=== PATIENT | female | born 1985 | race Caucasian/White ===

== ENCOUNTER 2016-11-28 23:24 | Emergency (ER) | payer OTHER ==
[~2016-11-28 23:24] MED LIST: ALPRAZOLAM0.25 MG EN; BACLOFEN10 MG PO; BUPROPION HCL150 M3 PO; CONCERTA36 MG PO; FOLIC ACID1 MG PO; MELOXICAM15 MG PO; MULTIVITAMIN1 TAB PO; PERCOCET1 TA1 PO; VITAMIN B-1 PO
--- NOTE | 2016-11-29 02:13 | ED NURSING NOTES ---
Clinical Report - Nurses [facility] [address] [place] [address] 11/28/2016 23:24 Patient: WILL MCCLENDON TRIAGE Triage time 23:29. Acuity: LEVEL 3. Chief Complaint: ABDOMINAL PAIN and NAUSEA and (Onset 5 hours ago, getting worse. Location central upper abdomen radiating across from RUQ to LUQ. Pain described as "wrenching, stabbing pain, burning." Alleviating factors: none identified, Aggravating factors: none identified. Has gallbladder and appendix. No hx of GI, liver issues.). Alert. SEPSIS SCREEN: Sepsis Screen: negative. Negative (no infection suspected/documented). --23:33 Les Emmanuel R.N. 23:27 11/28/16. BP: 146/91 (regular adult cuff) taken on the left arm, via an automated monitor, while lying. HR: 95 (normal rate). RR: 18 (regular, unlabored and normal). O2 saturation: 100% on room air. Temp: 97.8 F (oral). Pain level now: 05/10. --23:33 Les Emmanuel R.N. Weight: 88.4 kg stated. Height/Length: 61 inches Per Patient. BMI: 36.8. --23:30 Les Emmanuel R.N. Medications [place] Oral. --00:04 Les Emmanuel R.N. Effexor XR Oral. --00:04 Les Emmanuel R.N. [place] Oral. --00:04 Les Emmanuel R.N. Ritalin Oral. --00:04 Les Emmanuel R.N. Allergies No Known Drug Allergy. --00:04 Les Emmanuel R.N. History Arrived by private vehicle. Historian: patient. Accompanied by daughter. The patient has had vomiting. The vomiting has occurred twice and has been bilious and severe, colicky, sharp, burning abdominal pain. The pain is described as located in the upper abdomen, RUQ and LUQ. No fever, constipation, diarrhea, difficulty with urination or hematuria. Last oral intake by patient was (6:30 pm). Treatment COAT IRONER HAND: Took ibuprofen. Symptoms did not improve after treatment. (2 hours ago 600 mg). PAST MEDICAL HX: Uses an intrauterine device. SOCIAL HX: Current every day light tobacco smoker (cigarette)- less than 1/2 a pack per day. Regular alcohol use; consumes six beers a week. History of occasional drug use: marijuana. Recently used drugs days ago. The patient has not traveled outside the [place] The patient was not exposed to MRSA. No infectious disease exposure. ABUSE ASSESSMENT: Abuse assessment: The patient was asked "Do you feel safe in your home?" and "Has anyone hurt you or threatened to hurt you?". No report of abuse. SELF HARM ASSESSMENT: A self harm assessment was performed. The patient answered "no" to the question "Do you have thoughts of harming or killing yourself?" and "Have you recently had thoughts about harming or killing others?". FALL RISK ASSESSMENT: Fall risk assessment completed. No fall risk identified. NUTRITIONAL RISK ASSESSMENT: The nutritional risk assessment revealed no deficiencies. FUNCTIONAL ASSESSMENT: Functional assessment: no impairments noted. LEARNING NEEDS ASSESSMENT: The learning needs assessment revealed no barriers. SKIN INTEGRITY ASSESSMENT: Skin integrity risk assessment completed. No skin integrity risk identified. --23:33 Les Emmanuel R.N. Assessment GENERAL / NEURO / PSYCH: Alert. Oriented X 4. Appears in pain. [place] Coma Scale: 15- eyes open spontaneously (4); best verbal response- oriented x 4 (5); best motor response- obeys commands (6). Patient appears calm and cooperative. RESPIRATORY: Respirations not labored. SKIN: Skin is warm and dry. --23:33 Les Emmanuel R.N. Interventions ID band on patient. To treatment room. --23:33 Les Emmanuel R.N. PHYSICAL ASSESSMENT Ambulatory to room. GENERAL / NEURO / PSYCH: Alert. Oriented X 4. Appears in pain. RESPIRATORY: No respiratory distress. Respirations not labored. Breath sounds within normal limits. CVS: Normal sinus rhythm noted. Pulses: right radial 2+ and left radial 2+. Capillary refill less than 2 seconds. GI / : Obesity. Abdomen soft. Abdominal tenderness in the right upper quadrant. Bowel sounds within normal limits. ( Positive Andrea's Sign. Negative [place] Point tenderness, Rovsing's sign.). SKIN: Skin is warm and dry. --00:02 Les Emmanuel R.N. NURSING PROGRESS NOTES The initial plan of care for this patient has been created This plan of care was discussed with the patient. Patient gowned. Reassurance given to the patient. Two patient identifiers checked. Call light placed in reach. Side rails up x 1. Bed placed in lowest position. Brakes of bed on. Patient ready for evaluation- ED physician notified. --23:33 Les Emmanuel R.N. 23:48 11/28/2016 Two (2) unsuccessful IV access attempts including the right forearm. --23:48 Les Emmanuel R.N. ( POCT Urine - Negative). --23:50 Jeni Granados, ER Tech1 23:50 11/28/2016 Site #1 started via IV in the left wrist with an 20g angiocath, with aseptic technique and good blood return; one attempt. Blood drawn: rainbow set. Labeled in the presence of the patient and sent to the lab. Saline lock flushed with 10 mL saline. --23:57 Marc Elise R.N. 23:58 11/28/2016 Started bag #1 1000 mL IV Fluids IV NS (Saline); at 1000 mL/hr over 1 hour(s) via site #1. Allergies verified and confirmed 5 rights. IV patency established. IV site checked: no pain, redness, or swelling. IV flushed thoroughly pre- and post-medication administration. Completed per protocol. --23:58 Les Emmanuel R.N. 23:58 11/28/2016 Zofran (Ondansetron HCl) IVP 4 mg given over 2 minute(s) via site #1. Allergies verified and confirmed 5 rights. IV patency established. IV site checked: no pain, redness, or swelling. IV flushed thoroughly pre- and post-medication administration. IVP given by RN. --23:58 Les Emmanuel R.N. 23:59 11/28/2016 Demerol (Meperidine HCl) IVP 25 mg given over 2 minute(s) via site #1. Allergies verified and confirmed 5 rights. IV patency established. IV site checked: no pain, redness, or swelling. IV flushed thoroughly pre- and post-medication administration. IVP given by RN. --23:59 Les Emmanuel R.N. 23:33. Patient ID band checked for patient name and birthdate: patient confirmed. Instructions provided to collect clean catch urine and patient verbalized understanding. Clean catch urine collected with return of yellow-colored clear urine; sample sent to lab for urinalysis. Specimen labeled in the presence of the patient. --00:02 Les Emmanuel R.N. Warming measures performed. Lights dimmed. --00:03 Les Emmanuel R.N. 00:47 11/29/2016 Zofran (Ondansetron HCl) IVP 4 mg given over 2 minute(s) via site #1. Allergies verified and confirmed 5 rights. IV patency established. IV site checked: no pain, redness, or swelling. IV flushed thoroughly pre- and post-medication administration. IVP given by RN. --00:48 Les Emmanuel R.N. 01:04 11/29/2016 GI COCKTAIL WHITE (Simethicone) PO Oral Suspension 30 mL given. Allergies verified and confirmed 5 rights. --01:04 Les Emmanuel R.N. 01:44 11/29/2016 GI COCKTAIL WHITE PO Response: no adverse reaction symptoms are the same. The patient feels the same. --01:44 Les Emmanuel R.N. 01:50 11/29/16. BP: 100/48 (regular adult cuff) taken on the right arm, via an automated monitor, while lying. HR: 87 (normal rate). RR: 16 (regular, unlabored and normal). O2 saturation: 96% on room air. --01:51 Les Emmanuel R.N. 01:51 11/29/2016 Demerol (Meperidine HCl) IVP 25 mg given over 2 minute(s) via site #1. Allergies verified and confirmed 5 rights. IV patency established. IV site checked: no pain, redness, or swelling. IV flushed thoroughly pre- and post-medication administration. IVP given by RN. --01:51 Les Emmanuel R.N. 01:51 11/29/2016 Zofran IVP Response: no adverse reaction symptoms have improved. --01:51 Les Emmanuel R.N. 01:51 11/29/2016 Zofran IVP Response: no adverse reaction symptoms have improved. --01:51 Les Emmanuel R.N. 01:51 11/29/2016 Demerol IVP Response: no adverse reaction symptoms have improved. --01:51 Les Emmanuel R.N. 01:52 11/29/2016 IV Fluids IV NS Discontinued: bag #1 completed upon discharge. Total amount infused: 1000 mL. --01:52 Les Emmanuel R.N. 02:26 11/29/2016 Demerol IVP Response: no adverse reaction pain is improving. Symptoms have improved the patient feels better. --02:26 Lse Emmanuel R.N. DISPOSITION / DISCHARGE 02:11/29/2016 Site #1 removed upon discharge. Catheter intact. Bandaid applied (Bleeding controlled.). --02: Les Emmanuel R.N. Departure time: 02:25. Condition at departure: stable. The goals identified in the patient's plan of care were met. No learning barriers present. Discharge instructions provided and reviewed with the patient. Reviewed medication(s) side effects, precautions, dosing and course information. Prescription(s) given to the patient (Will verbalizes importance of not driving and/or operating heavy machinery while taking narcotics. She verbalizes safe, proper use of prescribed pain med for optimal pain management at home.). Patient verbalized understanding. Written instructions provided in Macedonian. ( Will verbalizes understanding of all d/c instructions including need to f/u with PCP. She has no questions and voices no concerns at this time.). The patient was discharged by the physician. She was discharged home and accompanied by family. She left the Emergency Department ambulatory and via private vehicle. Family member driving (Daughter). TITUS COMA SCORE: [place] Coma Scale: 15- eyes open spontaneously (4); best verbal response- oriented x 4 (5); best motor response- obeys commands (6). --02:25 Les Emmanuel R.N. 02:23 11/29/16. BP: 99/55 (regular adult cuff) taken on the right arm, via an automated monitor, while lying. HR: 74 (normal rate). RR: 14 (regular, unlabored and normal). O2 saturation: 96% on room air. Temp: 98.5 F (oral). Pain level now: 0/10. --02:25 Les Emmanuel R.N. Locked/Released at 11/29/2016 2:26 by Les Emmanuel R.N.
--- NOTE | 2016-11-29 02:13 | ED CLINICAL REPORT ---
Clinical Report - Physicians/Mid Levels [facility] [address] [place] [address] 11/28/2016 23:24 Patient: WILL MCCLENDON Time Seen: 23:26; initial patient contact. Arrived- By private vehicle. Historian- patient. HISTORY OF PRESENT ILLNESS Chief Complaint: ABDOMINAL PAIN. This started today and is still present. At its maximum, severity described as moderate. When seen in the E.D., severity described as moderate. Modifying factors- worsened by food. Not relieved by anything. It is described as cramping and it is described as located in the right upper quadrant and radiating to the upper back. The patient has had nausea, loss of appetite and vomiting. No diarrhea. Similar symptoms previously: None. Recent medical care: Not recently seen/assessed. REVIEW OF SYSTEMS No constipation, black stools, pain with urination, bloody stools or fever. No chills. Last bowel movement: today. All systems otherwise negative, except as recorded above. PAST HISTORY Depression. Anxiety Reaction. Drug Poisoning. Mental Illness. TMJ Syndrome. Abdominal Pain. Fall. Sprain. Tetanus Status. Vomiting. Gastritis. Immunizations. Dental Abscess. Lifestyle / Substance Problems. Abscess. Cellulitis. Migraine Headache. Allergic Reaction SURGERIES: . Dilatation & Curettage. SOCIAL HISTORY Current every day smoker. Occasional alcohol use. History of drug use: marijuana. ADDITIONAL NOTES The nursing notes have been reviewed. PHYSICAL EXAM Vital Signs: 11/28/2016 23:27 BP: 146/91. HR: 95. RR: 18. O2 saturation: 100%. Temp: 97.8 F. Pain level now: 05/10. Have been reviewed. Hypertensive. Heart rate normal. Respiratory rate normal. Temperature normal. Oxygen saturation normal. Appearance: Alert. Oriented X3. Appears to be in pain. Eyes: Eyes normal inspection. No scleral icterus. ENT: Dry mucous membranes present. Neck: Normal inspection. CVS: Normal heart rate and rhythm. Heart sounds normal. Respiratory: No respiratory distress. Breath sounds normal. Abdomen: Soft. Mild tenderness in the right upper quadrant. Positive Andrea's sign. No guarding or rebound tenderness. Bowel sounds normal. No organomegaly. No mass. Back: Normal inspection. No CVA tenderness. Skin: Skin warm and dry. Normal skin color. No rash. Extremities: No lower extremity edema. Neuro: Oriented X 3. LABS, X-RAYS, AND EKG Laboratory Tests: UA-Culture if indicated: (MITESH: 11/28/2016 23:30) ( [facility] 11/28/2016 23:51) Final results Test Result Flag Units (Reference) URINE COLOR YELLOW URINE APPEARANCE CLEAR URINE GLUCOSE NEGATIVE (NEGATIVE) URINE BILIRUBIN NEGATIVE (NEGATIVE) URINE KETONE NEGATIVE (NEGATIVE) URINE SPECIFIC GRAVITY 1.015 (1.010-1.030) URINE PH 6.5 (5.0-8.0) URINE PROTEIN NEGATIVE (NEGATIVE) URINE UROBILINOGEN 0.2 EU/dL (0.2-1.0) URINE NITRITE NEGATIVE (NEGATIVE) URINE BLOOD TRACE-LYSED (NEGATIVE) URINE LEUK ESTERASE NEGATIVE (NEGATIVE) URINE RBC 0-1 rbc/hpf (0-1) URINE WBC 0-1 wbc/hpf (0-1) URINE EPITHELIAL CELLS 0-1 EPI/hpf (0-5) URINE BACTERIA NONE SEEN (NONE SEEN) URINE COMMENT CULT NOT INDICATED URINE CULTURES ARE SET-UP BASED ON THE FOLLOWING CRITERIA:POSITIVE NITRITEPOSITIVE LEUKOCYTE ESTERASEGREATER THAN 10 WHITE BLOOD CELLSMODERATE (2+) OR GREATER BACTERIA CBC w Diff: (MITESH: 11/28/2016 23:40) ( [facility] 11/29/2016 00:08) Final results Test Result Flag Units (Reference) WHITE BLOOD COUNT 12.2 H K/uL (4.5-11.5) RED BLOOD COUNT 4.10 M/uL (4.00-5.20) HEMOGLOBIN 12.6 gm/dL (12.0-16.0) HEMATOCRIT 38.2 % (36.0-46.0) MEAN CELL VOLUME 93 fL (80-100) MEAN CORPUSCULAR HGB 31 pg (26-34) MEAN CORPUSCULAR HGB CONC 33 g/dL (31-37) RED CELL DISTRIBUTION WIDTH 13.1 % (11.6-14.8) PLATELET COUNT 271 K/uL (150-400) NEUTROPHIL % 73.9 % (50-75) LYMPH % 14.0 L % (25-40) MONO % 9.1 % (3-14) EOSINOPHIL % 2.6 % (0-4) BASOPHIL % 0.4 % (0-2) CMP: (MITESH: 11/28/2016 23:40) ( MsgRcvd 11/29/2016 00:17) Final results Test Result Flag Units (Reference) GLUCOSE 112 H mg/dL (70-110) BUN 11 mg/dL (7-18) CREATININE 0.8 mg/dL (0.6-1.3) Estimated GFR >60 mL/min Estimated GFR- >60 mL/min Note: Persistent reduction over 3 months in eGFR<60 mL/min/1.73 m2 defines CKD. Patients with eGFR values>=60 mL/min/1.73 m2 may also have CKD if evidence ofpersistent proteinuria. Additional information may be foundat www.kidney.org. SODIUM 142 mmol/L (136-145) POTASSIUM 3.7 mmol/L (3.5-5.1) CHLORIDE 105 mmol/L (98-107) CARBON DIOXIDE 26 mmol/L (21-32) CALCIUM 8.4 L mg/dL (8.5-10.1) TOTAL PROTEIN 7.1 g/dL (6.4-8.2) ALBUMIN 3.8 g/dL (3.3-5.0) BILIRUBIN, TOTAL 0.4 mg/dL (0.0-1.0) ALKALINE PHOSPHATASE 98 U/L (46-116) AST (SGOT) 26 U/L (15-37) ALT (SGPT) 30 U/L (12-78) LIPASE 93 U/L (73-393) AMYLASE 44 U/L (25-115) . PROGRESS AND PROCEDURES Disposition: Discharged home in good and improved condition. Condition: good. CLINICAL IMPRESSION Biliary colic. INSTRUCTIONS Drink plenty of fluids. Avoid alcohol. Avoid fried/greasy and spicy foods. Your Current Medications: CONTINUE TAKING THE FOLLOWING MEDICATIONS: Effexor XR Oral. [place] Oral. [place] Oral. Ritalin Oral. Prescription Medications: Hydrocodone/APAP 5mg / 325mg: take 1 orally every 6 hours as needed for pain. Dispense fifteen (15). No refill. Follow-up: Screening today revealed the patient's blood pressure to be in the normal range. Follow-up with: Mc Friend MD, General Surgeon, , [facility], [address] [place] [address] Follow up in about two days. Call for an appointment. (Electronically signed by Neto Wilburn Dr. 11/29/2016 2:46)
--- NOTE | 2016-11-29 02:13 | ED ORDER SUMMARY ---
..... Patient: WILL MCCLENDON OrderSheet [facility] VisitID: [id number] [place] [address] 31y, F Registration Date/Time: 11/28/2016 ORDER SHEET Weight: 88.4 kg (stated) Allergies: No Known Drug Allergy GENERAL ORDERS: UA-Culture if indicated Urgent (23:39 11/28/2016 NHouse ER Tech1 verbal order read back to Zully Lindsey) (Ack 23:40 CHagerty ER Chisel Trimmer) (23:48 JDeElena R.N.) CBC w Diff Urgent (23:42 11/28/2016 Zully Lindsey) (Ack 23:46 Becka ER Chisel Trimmer) (Collected 23:48 JDeElena R.N.) (23:58 JQuivey R.N.) CMP Urgent (23:42 11/28/2016 Zully Lindsey) (Ack 23:46 Becka ER Chisel Trimmer) (23:58 JQuivey R.N.) Amylase Urgent (23:42 11/28/2016 Zully Lindsey) (Ack 23:46 Becka ER Chisel Trimmer) (23:58 JQuivey R.N.) Lipase Urgent (23:42 11/28/2016 Zully Lindsey) (Ack 23:46 Becka ER Chisel Trimmer) (23:58 JQuivey R.N.) MEDICATION ORDERS: GI Cocktail WHITE PO 30 mL with Lidocaine Viscous Mouth/Throat 15 mL, Maalox Plus Oral 15 mL (NOW) (00:48 11/29/2016 JDeElena R.N. verbal order read back to Zully Lindsey) (Ack 0:50 JDeElena R.N.) (1:04 JDeElena R.N.) IV FLUIDS: IV NS : initial bolus none -, then 1000 mL/hr for X1 (NOW) (23:42 11/28/2016 Zully Lindsey) (Ack 23:48 JDeElena R.N.) (23:58 JDeElena R.N.) Zofran IV 4 mg (NOW) (23:42 11/28/2016 Zully Lindsey) (Ack 23:48 JDeElena R.N.) (23:58 JDeElena R.N.) Demerol IV 25 mg (HIGH ALERT MEDICATION, NOW) (23:42 11/28/2016 Zully Lindsey) (Ack 23:48 JDeElena R.N.) (23:59 JDeElena R.N.) Zofran IV 4 mg (NOW) (00:47 11/29/2016 Juan Rios.N. verbal order read back to Zully Lindsey) (0:48 JDeElena R.N.) Demerol IV 25 mg (HIGH ALERT MEDICATION, NOW) (01:45 11/29/2016 Zully Lindsey) (Ack 1:46 JDeElena R.N.) (1:51 JDeElena R.N.) ORDER SHEET NOTES: [Electronically signed by Les Emmanuel R.N. (02:26 11/29/2016)] [Electronically signed by Neto Wilburn Dr. (02:46 11/29/2016)] [Electronically locked/signed by Les Emmanuel R.N. (02:26 11/29/2016)]
--- NOTE | 2016-11-29 02:13 | ED ORDER SUMMARY ---
..... Patient: WILL MCCLENDON OrderSheet [facility] VisitID: [id number] [place] [address] 31y, F Registration Date/Time: 11/28/2016 ORDER SHEET Weight: 88.4 kg (stated) Allergies: No Known Drug Allergy GENERAL ORDERS: UA-Culture if indicated Urgent (23:39 11/28/2016 NHouse ER Tech1 verbal order read back to Zully Lindsey) (Ack 23:40 CHagerty ER Job Training Specialist) (23:48 JDeElena R.N.) CBC w Diff Urgent (23:42 11/28/2016 Zully Lindsey) (Ack 23:46 Becka ER Job Training Specialist) (Collected 23:48 JDeElena R.N.) (23:58 JQuivey R.N.) CMP Urgent (23:42 11/28/2016 Zully Lindsey) (Ack 23:46 Becka ER Job Training Specialist) (23:58 JQuivey R.N.) Amylase Urgent (23:42 11/28/2016 Zully Lindsey) (Ack 23:46 Becka ER Job Training Specialist) (23:58 JQuivey R.N.) Lipase Urgent (23:42 11/28/2016 Zully Lindsey) (Ack 23:46 Becka ER Job Training Specialist) (23:58 JQuivey R.N.) MEDICATION ORDERS: GI Cocktail WHITE PO 30 mL with Lidocaine Viscous Mouth/Throat 15 mL, Maalox Plus Oral 15 mL (NOW) (00:48 11/29/2016 JDeElena R.N. verbal order read back to Zully Lindsey) (Ack 0:50 JDeElena R.N.) (1:04 JDeElena R.N.) IV FLUIDS: IV NS : initial bolus none -, then 1000 mL/hr for X1 (NOW) (23:42 11/28/2016 Zully Lindsey) (Ack 23:48 JDeElena R.N.) (23:58 JDeElena R.N.) Zofran IV 4 mg (NOW) (23:42 11/28/2016 Zully Lindsey) (Ack 23:48 JDeElena R.N.) (23:58 JDeElena R.N.) Demerol IV 25 mg (HIGH ALERT MEDICATION, NOW) (23:42 11/28/2016 Zully Lindsey) (Ack 23:48 JDeElena R.N.) (23:59 JDeElena R.N.) Zofran IV 4 mg (NOW) (00:47 11/29/2016 Juan Rios.N. verbal order read back to Zully Lindsey) (0:48 JDeElena R.N.) Demerol IV 25 mg (HIGH ALERT MEDICATION, NOW) (01:45 11/29/2016 Zully Lindsey) (Ack 1:46 JDeElena R.N.) (1:51 JDeElena R.N.) ORDER SHEET NOTES: [Electronically signed by Les Emmanuel R.N. (02:26 11/29/2016)] [Electronically signed by Neto Wilburn Dr. (02:46 11/29/2016)] [Electronically locked/signed by Les Emmanuel R.N. (02:26 11/29/2016)]
--- NOTE | 2016-11-29 02:13 | ED CLINICAL REPORT ---
Clinical Report - Physicians/Mid Levels [facility] [address] [place] [address] 11/28/2016 23:24 Patient: WILL MCCLENDON Time Seen: 23:26; initial patient contact. Arrived- By private vehicle. Historian- patient. HISTORY OF PRESENT ILLNESS Chief Complaint: ABDOMINAL PAIN. This started today and is still present. At its maximum, severity described as moderate. When seen in the E.D., severity described as moderate. Modifying factors- worsened by food. Not relieved by anything. It is described as cramping and it is described as located in the right upper quadrant and radiating to the upper back. The patient has had nausea, loss of appetite and vomiting. No diarrhea. Similar symptoms previously: None. Recent medical care: Not recently seen/assessed. REVIEW OF SYSTEMS No constipation, black stools, pain with urination, bloody stools or fever. No chills. Last bowel movement: today. All systems otherwise negative, except as recorded above. PAST HISTORY Depression. Anxiety Reaction. Drug Poisoning. Mental Illness. TMJ Syndrome. Abdominal Pain. Fall. Sprain. Tetanus Status. Vomiting. Gastritis. Immunizations. Dental Abscess. Lifestyle / Substance Problems. Abscess. Cellulitis. Migraine Headache. Allergic Reaction SURGERIES: . Dilatation & Curettage. SOCIAL HISTORY Current every day smoker. Occasional alcohol use. History of drug use: marijuana. ADDITIONAL NOTES The nursing notes have been reviewed. PHYSICAL EXAM Vital Signs: 11/28/2016 23:27 BP: 146/91. HR: 95. RR: 18. O2 saturation: 100%. Temp: 97.8 F. Pain level now: 05/10. Have been reviewed. Hypertensive. Heart rate normal. Respiratory rate normal. Temperature normal. Oxygen saturation normal. Appearance: Alert. Oriented X3. Appears to be in pain. Eyes: Eyes normal inspection. No scleral icterus. ENT: Dry mucous membranes present. Neck: Normal inspection. CVS: Normal heart rate and rhythm. Heart sounds normal. Respiratory: No respiratory distress. Breath sounds normal. Abdomen: Soft. Mild tenderness in the right upper quadrant. Positive Andrea's sign. No guarding or rebound tenderness. Bowel sounds normal. No organomegaly. No mass. Back: Normal inspection. No CVA tenderness. Skin: Skin warm and dry. Normal skin color. No rash. Extremities: No lower extremity edema. Neuro: Oriented X 3. LABS, X-RAYS, AND EKG Laboratory Tests: UA-Culture if indicated: (MITESH: 11/28/2016 23:30) ( [facility] 11/28/2016 23:51) Final results Test Result Flag Units (Reference) URINE COLOR YELLOW URINE APPEARANCE CLEAR URINE GLUCOSE NEGATIVE (NEGATIVE) URINE BILIRUBIN NEGATIVE (NEGATIVE) URINE KETONE NEGATIVE (NEGATIVE) URINE SPECIFIC GRAVITY 1.015 (1.010-1.030) URINE PH 6.5 (5.0-8.0) URINE PROTEIN NEGATIVE (NEGATIVE) URINE UROBILINOGEN 0.2 EU/dL (0.2-1.0) URINE NITRITE NEGATIVE (NEGATIVE) URINE BLOOD TRACE-LYSED (NEGATIVE) URINE LEUK ESTERASE NEGATIVE (NEGATIVE) URINE RBC 0-1 rbc/hpf (0-1) URINE WBC 0-1 wbc/hpf (0-1) URINE EPITHELIAL CELLS 0-1 EPI/hpf (0-5) URINE BACTERIA NONE SEEN (NONE SEEN) URINE COMMENT CULT NOT INDICATED URINE CULTURES ARE SET-UP BASED ON THE FOLLOWING CRITERIA:POSITIVE NITRITEPOSITIVE LEUKOCYTE ESTERASEGREATER THAN 10 WHITE BLOOD CELLSMODERATE (2+) OR GREATER BACTERIA CBC w Diff: (MITESH: 11/28/2016 23:40) ( [facility] 11/29/2016 00:08) Final results Test Result Flag Units (Reference) WHITE BLOOD COUNT 12.2 H K/uL (4.5-11.5) RED BLOOD COUNT 4.10 M/uL (4.00-5.20) HEMOGLOBIN 12.6 gm/dL (12.0-16.0) HEMATOCRIT 38.2 % (36.0-46.0) MEAN CELL VOLUME 93 fL (80-100) MEAN CORPUSCULAR HGB 31 pg (26-34) MEAN CORPUSCULAR HGB CONC 33 g/dL (31-37) RED CELL DISTRIBUTION WIDTH 13.1 % (11.6-14.8) PLATELET COUNT 271 K/uL (150-400) NEUTROPHIL % 73.9 % (50-75) LYMPH % 14.0 L % (25-40) MONO % 9.1 % (3-14) EOSINOPHIL % 2.6 % (0-4) BASOPHIL % 0.4 % (0-2) CMP: (MITESH: 11/28/2016 23:40) ( MsgRcvd 11/29/2016 00:17) Final results Test Result Flag Units (Reference) GLUCOSE 112 H mg/dL (70-110) BUN 11 mg/dL (7-18) CREATININE 0.8 mg/dL (0.6-1.3) Estimated GFR >60 mL/min Estimated GFR- >60 mL/min Note: Persistent reduction over 3 months in eGFR<60 mL/min/1.73 m2 defines CKD. Patients with eGFR values>=60 mL/min/1.73 m2 may also have CKD if evidence ofpersistent proteinuria. Additional information may be foundat www.[email or web address].org. SODIUM 142 mmol/L (136-145) POTASSIUM 3.7 mmol/L (3.5-5.1) CHLORIDE 105 mmol/L (98-107) CARBON DIOXIDE 26 mmol/L (21-32) CALCIUM 8.4 L mg/dL (8.5-10.1) TOTAL PROTEIN 7.1 g/dL (6.4-8.2) ALBUMIN 3.8 g/dL (3.3-5.0) BILIRUBIN, TOTAL 0.4 mg/dL (0.0-1.0) ALKALINE PHOSPHATASE 98 U/L (46-116) AST (SGOT) 26 U/L (15-37) ALT (SGPT) 30 U/L (12-78) LIPASE 93 U/L (73-393) AMYLASE 44 U/L (25-115) . PROGRESS AND PROCEDURES Disposition: Discharged home in good and improved condition. Condition: good. CLINICAL IMPRESSION Biliary colic. INSTRUCTIONS Drink plenty of fluids. Avoid alcohol. Avoid fried/greasy and spicy foods. Your Current Medications: CONTINUE TAKING THE FOLLOWING MEDICATIONS: Effexor XR Oral. [place] Oral. [place] Oral. Ritalin Oral. Prescription Medications: Hydrocodone/APAP 5mg / 325mg: take 1 orally every 6 hours as needed for pain. Dispense fifteen (15). No refill. Follow-up: Screening today revealed the patient's blood pressure to be in the normal range. Follow-up with: Mc Friend MD, General Surgeon, , [facility], [address] [place] [address] Follow up in about two days. Call for an appointment. (Electronically signed by Neto Wilburn Dr. 11/29/2016 2:46)
--- NOTE | 2016-11-29 02:46 | ED MAR SUMMARY ---
..... Medication Administration Record [facility] [address] [place] [address] Patient: WILL MCCLENDON Visit ID: [id number] 31y, F Weight: 88.4 kg Height/Length: 61 in BMI: 36.8 ALLERGIES: No Known Drug Allergy Start 23:58 11/28/2016 Les Emmanuel R.N., Stop 01:52 11/29/2016 Les mEmanuel R.N. Medication Administered: IV NS (SALINE), Dose: IV Fluids over 1 hour(s), Rate: 1000 mL/hr, Dispensed: 1000 mL bag, Site: #1 left wrist. Medication Ordered: IV NS : initial bolus none -, then 1000 mL/hr for X1 (NOW). Given 23:58 11/28/2016 Les Emmanuel R.N. Medication Administered: ZOFRAN [IVP] (ONDANSETRON HCL), Dose: 4 mg IVP over 2 minute(s), Site: #1 left wrist. Medication Ordered: Zofran IV 4 mg (NOW). Given 23:59 11/28/2016 Les Emmanuel R.N. Medication Administered: DEMEROL [IVP] (MEPERIDINE HCL), Dose: 25 mg IVP over 2 minute(s), Site: #1 left wrist. Medication Ordered: Demerol IV 25 mg (HIGH ALERT MEDICATION, NOW). Given 00:47 11/29/2016 Les Emmanuel R.N. Medication Administered: ZOFRAN [IVP] (ONDANSETRON HCL), Dose: 4 mg IVP over 2 minute(s), Site: #1 left wrist. Medication Ordered: Zofran IV 4 mg (NOW). Given 01:04 11/29/2016 Les Emmanuel R.N. Medication Administered: GI COCKTAIL WHITE [PO] (SIMETHICONE), Dose: 30 mL Oral Suspension PO. Medication Ordered: GI Cocktail WHITE PO 30 mL with Lidocaine Viscous Mouth/Throat 15 mL, Maalox Plus Oral 15 mL (NOW). Given 01:51 11/29/2016 Les Emmanuel R.N. Medication Administered: DEMEROL [IVP] (MEPERIDINE HCL), Dose: 25 mg IVP over 2 minute(s), Site: #1 left wrist. Medication Ordered: Demerol IV 25 mg (HIGH ALERT MEDICATION, NOW).
--- NOTE | 2016-11-29 02:46 | ED DISCHARGE INSTRUCTIONS ---
Patient: WILL MCCLENDON General Instructions [facility] VisitID: [id number] [place] [address] 31y, F Registration Date/Time: 11/28/2016 Biliary colic. INSTRUCTIONS Drink plenty of fluids. Avoid alcohol. Avoid fried/greasy and spicy foods. Your Current Medications: CONTINUE TAKING THE FOLLOWING MEDICATIONS: Effexor XR Oral. [place] Oral. [place] Oral. Ritalin Oral. Prescription Medications: Hydrocodone/APAP 5mg / 325mg: take 1 orally every 6 hours as needed for pain. Dispense fifteen (15). No refill. Follow-up: Screening today revealed the patient's blood pressure to be in the normal range. Follow-up with: Mc Friend MD, General Surgeon, , [facility], [address] [place] [address] Follow up in about two days. Call for an appointment. ADDITIONAL INFORMATION Possible Gallstone With Biliary Colic [Presumed] Your doctor suspects that your abdominal pain is due to spasm of the gallbladder with gallstones. The gallbladder is a small sack under the liver which stores and releases bile. Bile is a fluid that aids in the digestion of fat. A gallstone may form in this sack and block the flow of bile fluid. This can cause mild to severe cramping pain in the mid or right upper abdomen with nausea and vomiting. To be more certain of the diagnosis, you may need to have an ultrasound, CT-scan or other special test. Home Care: Rest in bed and follow a clear liquid diet until feeling better. If pain or nausea medicine was given to help with your symptoms, take these as directed. Fat in your diet makes the gallbladder contract and may cause increased pain. Therefore, avoid fat in your diet over the next two days and follow a low-fat diet after that. If you are overweight, a low fat diet will help you lose weight. Follow Up if a test was already scheduled for you, keep this appointment. Be sure you know how to prepare yourself for the test. Usually, you will be asked not to eat or drink anything for at least 8 hours before the test. Schedule an appointment with your own doctor after your test is complete to discuss the findings. Get Prompt Medical Attention if any of the following occur: Pain gets worse or moves to the right lower abdomen Repeated vomiting Swelling of the abdomen Pain lasts over 6 hours Fever of 100.4 F (38 C) or higher, or as directed by your healthcare provider Weakness, dizziness or fainting Dark urine or light colored stools Yellow color of the skin or eyes Chest, arm, back, neck or jaw pain Hydrocodone Bitartrate, Acetaminophen Oral tablet What is this medicine? ACETAMINOPHEN; HYDROCODONE (a set a VICKI [place] fen; kristine droe KOE done) is a pain reliever. It is used to treat mild to moderate pain. How should I use this medicine? Take this medicine by mouth. Swallow it with a full glass of water. Follow the directions on the prescription label. If the medicine upsets your stomach, take the medicine with food or milk. Do not take more than you are told to take. Talk to your highballer regarding the use of this medicine in children. This medicine is not approved for use in children. What side effects may I notice from receiving this medicine? Side effects that you should report to your doctor or health career development director as soon as possible: allergic reactions like skin rash, itching or hives, swelling of the face, lips, or tongue breathing problems confusion feeling faint or lightheaded, falls stomach pain yellowing of the eyes or skin Side effects that usually do not require medical attention (report to your doctor or health career development director if they continue or are bothersome): nausea, vomiting stomach upset What may interact with this medicine? alcohol antihistamines isoniazid medicines for depression, anxiety, or psychotic disturbances medicines for sleep muscle relaxants naltrexone narcotic medicines (opiates) for pain phenobarbital ritonavir tramadol What if I miss a dose? If you miss a dose, take it as soon as you can. If it is almost time for your next dose, take only that dose. Do not take double or extra doses. Where should I keep my medicine? Keep out of the reach of children. This medicine can be abused. Keep your medicine in a safe place to protect it from theft. Do not share this medicine with anyone. Selling or giving away this medicine is dangerous and against the law. Store at room temperature between 15 and 30 degrees C (59 and 86 degrees F). Protect from light. Keep container tightly closed. Throw away any unused medicine after the expiration date. Discard unused medicine and used packaging carefully. Pets and children can be harmed if they find used or lost packages. What should I tell my health care provider before I take this medicine? They need to know if you have any of these conditions: brain tumor Crohn's disease, inflammatory bowel disease, or ulcerative colitis drink more than 3 alcohol-containing drinks per day drug abuse or addiction head injury heart or circulation problems kidney disease or problems going to the bathroom liver disease lung disease, asthma, or breathing problems an unusual or allergic reaction to acetaminophen, hydrocodone, other opioid analgesics, other medicines, foods, dyes, or preservatives or trying to get breast-feeding What should I watch for while using this medicine? Tell your doctor or health career development director if your pain does not go away, if it gets worse, or if you have new or a different type of pain. You may develop tolerance to the medicine. Tolerance means that you will need a higher dose of the medicine for pain relief. Tolerance is normal and is expected if you take the medicine for a long time. Do not suddenly stop taking your medicine because you may develop a severe reaction. Your body becomes used to the medicine. This does NOT mean you are addicted. Addiction is a behavior related to getting and using a drug for a non-medical reason. If you have pain, you have a medical reason to take pain medicine. Your doctor will tell you how much medicine to take. If your doctor wants you to stop the medicine, the dose will be slowly lowered over time to avoid any side effects. You may get drowsy or dizzy when you first start taking the medicine or change doses. Do not drive, use machinery, or do anything that may be dangerous until you know how the medicine affects you. Stand or sit up slowly. There are different types of narcotic medicines (opiates) for pain. If you take more than one type at the same time, you may have more side effects. Give your health care provider a list of all medicines you use. Your doctor will tell you how much medicine to take. Do not take more medicine than directed. Call emergency for help if you have problems breathing. The medicine will cause constipation. Try to have a bowel movement at least every 2 to 3 days. If you do not have a bowel movement for 3 days, call your doctor or health career development director. Too much acetaminophen can be very dangerous. Do not take Tylenol (acetaminophen) or medicines that contain acetaminophen with this medicine. Many non-prescription medicines contain acetaminophen. Always read the labels carefully. You have been given the following additional information: Biliary Colic With Gallstone (Presumed) Hydrocodone Bitartrate, Acetaminophen Oral tablet (Electronically signed by Neto Wilburn Dr. 11/29/2016 2:46)
--- NOTE | 2016-11-29 02:46 | ED MAR SUMMARY ---
..... Medication Administration Record [facility] [address] [place] [address] Patient: WILL MCCLNEDON Visit ID: [id number] 31y, F Weight: 88.4 kg Height/Length: 61 in BMI: 36.8 ALLERGIES: No Known Drug Allergy Start 23:58 11/28/2016 Les Emmanuel R.N., Stop 01:52 11/29/2016 Les Emmanuel R.N. Medication Administered: IV NS (SALINE), Dose: IV Fluids over 1 hour(s), Rate: 1000 mL/hr, Dispensed: 1000 mL bag, Site: #1 left wrist. Medication Ordered: IV NS : initial bolus none -, then 1000 mL/hr for X1 (NOW). Given 23:58 11/28/2016 Les Emmanuel R.N. Medication Administered: ZOFRAN [IVP] (ONDANSETRON HCL), Dose: 4 mg IVP over 2 minute(s), Site: #1 left wrist. Medication Ordered: Zofran IV 4 mg (NOW). Given 23:59 11/28/2016 Les Emmanuel R.N. Medication Administered: DEMEROL [IVP] (MEPERIDINE HCL), Dose: 25 mg IVP over 2 minute(s), Site: #1 left wrist. Medication Ordered: Demerol IV 25 mg (HIGH ALERT MEDICATION, NOW). Given 00:47 11/29/2016 Les Emmanuel R.N. Medication Administered: ZOFRAN [IVP] (ONDANSETRON HCL), Dose: 4 mg IVP over 2 minute(s), Site: #1 left wrist. Medication Ordered: Zofran IV 4 mg (NOW). Given 01:04 11/29/2016 Les Emmanuel R.N. Medication Administered: GI COCKTAIL WHITE [PO] (SIMETHICONE), Dose: 30 mL Oral Suspension PO. Medication Ordered: GI Cocktail WHITE PO 30 mL with Lidocaine Viscous Mouth/Throat 15 mL, Maalox Plus Oral 15 mL (NOW). Given 01:51 11/29/2016 Les Emmanuel R.N. Medication Administered: DEMEROL [IVP] (MEPERIDINE HCL), Dose: 25 mg IVP over 2 minute(s), Site: #1 left wrist. Medication Ordered: Demerol IV 25 mg (HIGH ALERT MEDICATION, NOW).
--- NOTE | 2016-11-29 02:46 | ED MED RECONCILIATION SUMMARY ---
Patient: WILL MCCLENDON Medication Reconciliation Report [facility] VisitID: [id number] [place] [address] 31y, F Registration Date/Time: 11/28/2016 Weight: 88.4 kg Height/Length: 61 in. BMI: 36.8 ALLERGIES: No Known Drug Allergy The patient's Home Medications are listed below: CONTINUE TAKING THE FOLLOWING MEDICATIONS: Effexor XR Oral [place] Oral [place] Oral Ritalin Oral The source(s) of the original Home Medication information: Not obtained. The following Medications were given to the patient in the Emergency Department: IV NS IV Fluids bolus 0, then 1000 mL/hr, administered: 11/28/2016 11:58:00 PM Zofran [IVP] IVP 4 mg, administered: 11/28/2016 11:58:00 PM Demerol [IVP] IVP 25 mg, administered: 11/28/2016 11:59:00 PM Zofran [IVP] IVP 4 mg, administered: 11/29/2016 12:47:00 AM GI COCKTAIL WHITE [PO] PO 30 mL, administered: 11/29/2016 1:04:00 AM Demerol [IVP] IVP 25 mg, administered: 11/29/2016 1:51:00 AM The following Medications were prescribed to the patient: Hydrocodone/APAP 5mg / 325mg: take 1 orally every 6 hours as needed for pain. Dispense fifteen (15). No refill. -- Neto Wilburn Dr.
--- NOTE | 2016-11-29 02:46 | ED MED RECONCILIATION SUMMARY ---
Patient: WILL MCCLENDON Medication Reconciliation Report [facility] VisitID: [id number] [place] [address] 31y, F Registration Date/Time: 11/28/2016 Weight: 88.4 kg Height/Length: 61 in. BMI: 36.8 ALLERGIES: No Known Drug Allergy The patient's Home Medications are listed below: CONTINUE TAKING THE FOLLOWING MEDICATIONS: Effexor XR Oral [place] Oral [place] Oral Ritalin Oral The source(s) of the original Home Medication information: Not obtained. The following Medications were given to the patient in the Emergency Department: IV NS IV Fluids bolus 0, then 1000 mL/hr, administered: 11/28/2016 11:58:00 PM Zofran [IVP] IVP 4 mg, administered: 11/28/2016 11:58:00 PM Demerol [IVP] IVP 25 mg, administered: 11/28/2016 11:59:00 PM Zofran [IVP] IVP 4 mg, administered: 11/29/2016 12:47:00 AM GI COCKTAIL WHITE [PO] PO 30 mL, administered: 11/29/2016 1:04:00 AM Demerol [IVP] IVP 25 mg, administered: 11/29/2016 1:51:00 AM The following Medications were prescribed to the patient: Hydrocodone/APAP 5mg / 325mg: take 1 orally every 6 hours as needed for pain. Dispense fifteen (15). No refill. -- Neto Wilburn Dr.
--- NOTE | 2016-11-29 02:46 | ED DISCHARGE INSTRUCTIONS ---
Patient: WILL MCCLENDON General Instructions VisitID: [id number] [place] [address] 31y, F Registration Date/Time: 11/28/2016 Biliary colic. INSTRUCTIONS Drink plenty of fluids. Avoid alcohol. Avoid fried/greasy and spicy foods. Your Current Medications: CONTINUE TAKING THE FOLLOWING MEDICATIONS: Effexor XR Oral. Braham Oral. [place]field Oral. Ritalin Oral. Prescription Medications: Hydrocodone/APAP 5mg / 325mg: take 1 orally every 6 hours as needed for pain. Dispense fifteen (15). No refill. Follow-up: Screening today revealed the patient's blood pressure to be in the normal range. Follow-up with: Mc Friend MD, General Surgeon, , [facility], [address] [place] [address] Follow up in about two days. Call for an appointment. ADDITIONAL INFORMATION Possible Gallstone With Biliary Colic [Presumed] Your doctor suspects that your abdominal pain is due to spasm of the gallbladder with gallstones. The gallbladder is a small sack under the liver which stores and releases bile. Bile is a fluid that aids in the digestion of fat. A gallstone may form in this sack and block the flow of bile fluid. This can cause mild to severe cramping pain in the mid or right upper abdomen with nausea and vomiting. To be more certain of the diagnosis, you may need to have an ultrasound, CT-scan or other special test. Home Care: Rest in bed and follow a clear liquid diet until feeling better. If pain or nausea medicine was given to help with your symptoms, take these as directed. Fat in your diet makes the gallbladder contract and may cause increased pain. Therefore, avoid fat in your diet over the next two days and follow a low-fat diet after that. If you are overweight, a low fat diet will help you lose weight. Follow Up if a test was already scheduled for you, keep this appointment. Be sure you know how to prepare yourself for the test. Usually, you will be asked not to eat or drink anything for at least 8 hours before the test. Schedule an appointment with your own doctor after your test is complete to discuss the findings. Get Prompt Medical Attention if any of the following occur: Pain gets worse or moves to the right lower abdomen Repeated vomiting Swelling of the abdomen Pain lasts over 6 hours Fever of 100.4 F (38 C) or higher, or as directed by your healthcare provider Weakness, dizziness or fainting Dark urine or light colored stools Yellow color of the skin or eyes Chest, arm, back, neck or jaw pain Hydrocodone Bitartrate, Acetaminophen Oral tablet What is this medicine? ACETAMINOPHEN; HYDROCODONE (a set a VICKI [place] fen; kristine droe KOE done) is a pain reliever. It is used to treat mild to moderate pain. How should I use this medicine? Take this medicine by mouth. Swallow it with a full glass of water. Follow the directions on the prescription label. If the medicine upsets your stomach, take the medicine with food or milk. Do not take more than you are told to take. Talk to your echocardiographer regarding the use of this medicine in children. This medicine is not approved for use in children. What side effects may I notice from receiving this medicine? Side effects that you should report to your doctor or health manager care as soon as possible: allergic reactions like skin rash, itching or hives, swelling of the face, lips, or tongue breathing problems confusion feeling faint or lightheaded, falls stomach pain yellowing of the eyes or skin Side effects that usually do not require medical attention (report to your doctor or health manager care if they continue or are bothersome): nausea, vomiting stomach upset What may interact with this medicine? alcohol antihistamines isoniazid medicines for depression, anxiety, or psychotic disturbances medicines for sleep muscle relaxants naltrexone narcotic medicines (opiates) for pain phenobarbital ritonavir tramadol What if I miss a dose? If you miss a dose, take it as soon as you can. If it is almost time for your next dose, take only that dose. Do not take double or extra doses. Where should I keep my medicine? Keep out of the reach of children. This medicine can be abused. Keep your medicine in a safe place to protect it from theft. Do not share this medicine with anyone. Selling or giving away this medicine is dangerous and against the law. Store at room temperature between 15 and 30 degrees C (59 and 86 degrees F). Protect from light. Keep container tightly closed. Throw away any unused medicine after the expiration date. Discard unused medicine and used packaging carefully. Pets and children can be harmed if they find used or lost packages. What should I tell my health care provider before I take this medicine? They need to know if you have any of these conditions: brain tumor Crohn's disease, inflammatory bowel disease, or ulcerative colitis drink more than 3 alcohol-containing drinks per day drug abuse or addiction head injury heart or circulation problems kidney disease or problems going to the bathroom liver disease lung disease, asthma, or breathing problems an unusual or allergic reaction to acetaminophen, hydrocodone, other opioid analgesics, other medicines, foods, dyes, or preservatives or trying to get breast-feeding What should I watch for while using this medicine? Tell your doctor or health manager care if your pain does not go away, if it gets worse, or if you have new or a different type of pain. You may develop tolerance to the medicine. Tolerance means that you will need a higher dose of the medicine for pain relief. Tolerance is normal and is expected if you take the medicine for a long time. Do not suddenly stop taking your medicine because you may develop a severe reaction. Your body becomes used to the medicine. This does NOT mean you are addicted. Addiction is a behavior related to getting and using a drug for a non-medical reason. If you have pain, you have a medical reason to take pain medicine. Your doctor will tell you how much medicine to take. If your doctor wants you to stop the medicine, the dose will be slowly lowered over time to avoid any side effects. You may get drowsy or dizzy when you first start taking the medicine or change doses. Do not drive, use machinery, or do anything that may be dangerous until you know how the medicine affects you. Stand or sit up slowly. There are different types of narcotic medicines (opiates) for pain. If you take more than one type at the same time, you may have more side effects. Give your health care provider a list of all medicines you use. Your doctor will tell you how much medicine to take. Do not take more medicine than directed. Call emergency for help if you have problems breathing. The medicine will cause constipation. Try to have a bowel movement at least every 2 to 3 days. If you do not have a bowel movement for 3 days, call your doctor or health manager care. Too much acetaminophen can be very dangerous. Do not take Tylenol (acetaminophen) or medicines that contain acetaminophen with this medicine. Many non-prescription medicines contain acetaminophen. Always read the labels carefully. You have been given the following additional information: Biliary Colic With Gallstone (Presumed) Hydrocodone Bitartrate, Acetaminophen Oral tablet (Electronically signed by Neto Wilburn Dr. 11/29/2016 2:46)
== END 2016-11-29 02:20 | disposition home or self-care (01) ==
LOC: ED SRH 23:24
DX: K80.50 Calculus of bile duct without cholangitis or cholecystitis without obstruction (principal); F17.200 Nicotine dependence, unspecified, uncomplicated
CPT/HCPCS: 90004; 90100; 92235; 92530; 95059